=== PATIENT | female | born 1935 | race African-American/Black ===

== ENCOUNTER 2016-06-01 08:26 | Emergency (ER) | payer MEDICARE, MEDICAID ==
[~2016-06-01] VITALS: Ht 170.2 cm; Wt 85.0 kg
[2016-06-01 08:35] VITALS: BP 133/76
[2016-06-01 09:47] LABS: BASOPHILS % 0.6 % (0.0-2.0); EOSINOPHILS % 2.1 % (0.0-5.0); HEMATOCRIT. 34.5 % (36.0-48.0); HEMOGLOBIN. 11.1 g/dL (12.0-16.0); LYMPHOCYTES % 32.9 % (20.0-50.0); MEAN CORPUSCULAR HEMOGLOBIN 30.3 pg (28.0-32.0); MEAN CORPUSCULAR VOLUME 93.8 fL (81.0-99.0); MEAN PLATELET VOLUME 8.8 fl (7.4-10.4); MONOCYTES % 11.4 % (2.0-8.0); PLATELET 195 x1000/uL (130-400); RED BLOOD CELL COUNT 3.67 mill/uL (4.2-5.4); RED CELL DISTRIBUTION WIDTH 13.6 % (11.6-14.6)
[2016-06-01 09:55] LABS: CARBON DIOXIDE 26 mEq/L (21-32); CHLORIDE 108 mEq/L (98-107)
[2016-06-01 10:02] LABS: TROPONIN I < 0.02 ng/mL (0.00-0.04)
[2016-06-01] MEDS ORDERED: TRAMADOL 50MG TABLET PO ONE (11:15)
== END 2016-06-01 11:50 | disposition home or self-care (01) ==
LOC: ER 08:44
DX: G89.29 Other chronic pain (principal); M17.0 Bilateral primary osteoarthritis of knee; I10 Essential (primary) hypertension; D64.9 Anemia, unspecified; D69.6 Thrombocytopenia, unspecified; N28.9 Disorder of kidney and ureter, unspecified; Z91.81 History of falling; R51 Headache
CPT/HCPCS: 36415; 70450; 73562; 80053; 83735; 84484; 85025; 93005; 99285

== ENCOUNTER 2017-12-17 12:52 | Inpatient (IN) | payer MEDICARE, MEDICAID ==
[~2017-12-17] VITALS: Ht 170.2 cm; Wt 99.8 kg
[~2017-12-17 12:52] MED LIST: AMLO5TAB88 PO; HYDR-4001 PO; SULF1TAB48 MT
[2017-12-17] MEDS ORDERED: SODIUM CHLORIDE 0.9% 1,000 ML IV ONE (13:32)
[2017-12-17 14:40] LABS: EOSINOPHILS % 1.3 % (0.0-5.0); HEMATOCRIT. 36.9 % (36.0-48.0); HEMOGLOBIN. 12.3 g/dL (12.0-16.0); LYMPHOCYTES % 25.4 % (20.0-50.0); MEAN CORPUSCULAR HEMOGLOBIN 31.4 pg (28.0-32.0); MEAN CORPUSCULAR VOLUME 94.8 fL (81.0-99.0); MEAN PLATELET VOLUME 9.6 fl (7.4-10.4); MONOCYTES % 8.5 % (2.0-8.0); NEUTROPHILS % 63.8 % (40.0-76.0); PLATELET 235 x1000/uL (130-400); RED CELL DISTRIBUTION WIDTH 13.9 % (11.6-14.6)
[2017-12-17 14:47] LABS: PARTIAL THROMBOPLASTIN TIME 20.2 sec (23.4-31.0); PROTHROMBIN TIME 9.9 sec (9.1-11.1)
[2017-12-17 14:50] LABS: CHLORIDE 108 mEq/L (98-107)
[2017-12-17 19:47] LABS: CLARITY URINE CLEAR (CLEAR); COLOR URINE DARK YELLOW (YELLOW); KETONES URINE TRACE (NEGATIVE); LEUKOCYTE ESTERASE URINE 2+ (NEGATIVE); NITRITE URINE NEGATIVE (NEGATIVE); OCCULT BLOOD URINE NEGATIVE (NEGATIVE); PROTEIN URINE NEGATIVE (NEGATIVE); SPECIFIC GRAVITY URINE 1.022 (1.005-1.030)
[2017-12-17 20:00] VITALS: BP 145/78
[2017-12-17 20:50] VITALS: BP 145/78
[2017-12-17] MEDS ORDERED: LORAZEPAM 2MG/ML CPJ IV PRN (22:30)
[2017-12-17] MEDS ORDERED: ONDANSETRON HCL 4MG/2ML INJ IV PRN (22:30)
[2017-12-17] MEDS ORDERED: CLONIDINE 0.1MG TABLET PO PRN (22:30)
[2017-12-17] MEDS ORDERED: CEFTRIAXONE 1,000 MG in DEXTROSE 5% WATER 50 ML IV SCH (22:30)
[2017-12-17] MEDS ORDERED: ACETAMINOPHEN 325MG TABLET PO PRN (22:30)
[2017-12-18] VITALS: BP 142/70
[2017-12-18] MEDS: DEXT 5%/0.45% NACL 1000ML 1,000 ML IV SCH ×2 (00:10→15:40)
[2017-12-18] MEDS: CEFTRIAXONE 1,000 MG in DEXTROSE 5% WATER 50 ML IV SCH (00:10)
[2017-12-18 04:00] VITALS: BP 138/72
[2017-12-18 07:36] LABS: BASOPHILS % 0.7 % (0.0-2.0); EOSINOPHILS % 1.6 % (0.0-5.0); HEMATOCRIT. 29.5 % (36.0-48.0); LYMPHOCYTES % 44.5 % (20.0-50.0); MEAN CORPUSCULAR HEMOGLOBIN 32.2 pg (28.0-32.0); MEAN CORPUSCULAR VOLUME 94.5 fL (81.0-99.0); MEAN PLATELET VOLUME 9.7 fl (7.4-10.4); MONOCYTES % 9.2 % (2.0-8.0); PLATELET 212 x1000/uL (130-400); RED BLOOD CELL COUNT 3.12 mill/uL (4.2-5.4); RED CELL DISTRIBUTION WIDTH 13.9 % (11.6-14.6)
[2017-12-18 08:00] VITALS: BP 122/64
[2017-12-18 08:02] LABS: CHLORIDE 112 mEq/L (98-107)
[2017-12-18] MEDS: ENOXAPARIN 30MG/0.3ML SYR SUBCUT SCH ×2 (08:34→21:26)
[2017-12-18] MEDS ORDERED: NITROGLYCERIN 0.4MG TABLET SL SL PRN (10:00)
[2017-12-18] MEDS ORDERED: TRAMADOL 50MG TABLET PO PRN (10:00)
[2017-12-18 12:00] VITALS: BP 123/70
[2017-12-18] MEDS: FAMOTIDINE 20MG TABLET PO SCH (12:23)
[2017-12-18] MEDS: ZINC SULFATE 220 MG ( 50 ) CAPSULE PO SCH (12:23)
[2017-12-18] MEDS: ASCORBIC ACID 500 MG TABLET PO SCH ×2 (12:23→21:26)
[2017-12-18 16:00] VITALS: BP 153/81
[2017-12-18 20:00] VITALS: BP 142/82
[2017-12-18] MEDS ORDERED: ZOLPIDEM TARTRATE 5MG TABLET PO PRN (21:00)
[2017-12-19] VITALS: BP 141/72
[2017-12-19] MEDS: CEFTRIAXONE 1,000 MG in DEXTROSE 5% WATER 50 ML IV SCH (00:53)
[2017-12-19 04:00] VITALS: BP 137/70
[2017-12-19 07:44] VITALS: BP 160/81
[2017-12-19] MEDS: FAMOTIDINE 20MG TABLET PO SCH (09:08)
[2017-12-19] MEDS: ZINC SULFATE 220 MG ( 50 ) CAPSULE PO SCH (09:08)
[2017-12-19] MEDS: ASPIRIN 325MG EC TABLET PO SCH (09:08)
[2017-12-19] MEDS: ASCORBIC ACID 500 MG TABLET PO SCH ×2 (09:08→20:49)
[2017-12-19] MEDS: ENOXAPARIN 30MG/0.3ML SYR SUBCUT SCH ×2 (09:09→20:49)
[2017-12-19 12:00] VITALS: BP 142/86
[2017-12-19] MEDS ORDERED: LORAZEPAM 2MG/ML CPJ IV PRN (14:00)
[2017-12-19 16:17] VITALS: BP 149/82
[2017-12-19 20:00] VITALS: BP 143/73
[2017-12-20] VITALS: BP 140/69
[2017-12-20] MEDS: CEFTRIAXONE 1,000 MG in DEXTROSE 5% WATER 50 ML IV SCH (00:06)
[2017-12-20 04:00] VITALS: BP 142/62
[2017-12-20 08:00] VITALS: BP 136/86
[2017-12-20 08:17] LABS: BASOPHILS % 0.8 % (0.0-2.0); EOSINOPHILS % 4.5 % (0.0-5.0); HEMATOCRIT. 31.7 % (36.0-48.0); HEMOGLOBIN. 10.4 g/dL (12.0-16.0); LYMPHOCYTES % 45.7 % (20.0-50.0); MEAN CORPUSCULAR HEMOGLOBIN 31.2 pg (28.0-32.0); MONOCYTES % 10.9 % (2.0-8.0); NEUTROPHILS % 38.1 % (40.0-76.0); PLATELET 200 x1000/uL (130-400); RED BLOOD CELL COUNT 3.33 mill/uL (4.2-5.4); RED CELL DISTRIBUTION WIDTH 13.8 % (11.6-14.6)
[2017-12-20 08:27] LABS: CHLORIDE 111 mEq/L (98-107)
[2017-12-20 08:31] LABS: PHOSPHORUS 3.6 mg/dL (2.5-4.9)
[2017-12-20] MEDS: ASCORBIC ACID 500 MG TABLET PO SCH (09:47)
[2017-12-20] MEDS: FAMOTIDINE 20MG TABLET PO SCH (09:47)
[2017-12-20] MEDS: ZINC SULFATE 220 MG ( 50 ) CAPSULE PO SCH (09:47)
[2017-12-20] MEDS: ASPIRIN 325MG EC TABLET PO SCH (09:47)
[2017-12-20] MEDS: ENOXAPARIN 30MG/0.3ML SYR SUBCUT SCH (09:48)
[2017-12-20 12:00] VITALS: BP 141/75
[2017-12-20 16:08] VITALS: BP 132/80
== END 2017-12-20 17:00 | disposition home or self-care (01) | DRG 463 ==
LOC: ER 14:08 → EDBEDREQTM 16:38 → EDBEDREQ 16:38 → ENRESERV 17:42 → 8WST 20:00
PROVIDERS: ADMIT Internal Medicine Nephrology; ATTEND Internal Medicine Nephrology
DX: N39.0 Urinary tract infection, site not specified (principal); D63.8 Anemia in other chronic diseases classified elsewhere; E44.1 Mild protein-calorie malnutrition; F03.90 Unspecified dementia, unspecified severity, without behavioral disturbance, psychotic disturbance, mood disturbance, and anxiety; E87.6 Hypokalemia; M17.11 Unilateral primary osteoarthritis, right knee; I10 Essential (primary) hypertension; Z86.73 Personal history of transient ischemic attack (TIA), and cerebral infarction without residual deficits; Z74.01 Bed confinement status; Z68.34 Body mass index [BMI] 34.0-34.9, adult
CPT/HCPCS: 36415; 51702; 71045; 80048; 83605; 83735; 83880; 84100; 84145; 84484; 87077; 87106; 93005; 96360; 96361; 97162; 99285; C1893; J0696; J1650; J3490; J7030; J7060; A4315